=== PATIENT | female | born 1955 | race Caucasian/White ===

== ENCOUNTER 2024-06-17 21:28 | Emergency (ER) | payer OTHER, MEDICAID ==
[~2024-06-17] VITALS: Ht 162.6 cm; Wt 63.5 kg
[~2024-06-17 21:28] MED LIST: ALPR1TAB2 PO; BENA10TA74 PO; CALC-555 PO; CYCL-289 PO; GABA300C PO; HYDR-3326 PO; PRAV10TA40 PO; RANI150T8 PO; TRAM50TA2 PO
[2024-06-17] MEDS ORDERED: ONDANSETRON 4 MG/2 ML VIAL ONE (22:22)
[2024-06-17] MEDS ORDERED: HYDROMORPHONE 1 MG/1 ML DISP.SYRIN ONE (22:22)
[2024-06-17] MEDS: HYDROMORPHONE 1 MG/1 ML DISP.SYRIN IV ONE (22:37)
[2024-06-17] MEDS: ONDANSETRON 4 MG/2 ML VIAL IV ONE (22:37)
[2024-06-17 22:50] LABS: BASOPHILS % (AUTO) 0.6 % (0.0-2.0); EOSINOPHILS # (AUTO) 0.1 K/uL (0.0-0.7); EOSINOPHILS % (AUTO) 1.4 % (0.0-7.0); HEMATOCRIT 34.4 % (31.2-41.9); HEMOGLOBIN 11.8 g/dL (10.9-14.3); LYMPHOCYTES # (AUTO) 1.7 K/uL (0.8-4.8); LYMPHOCYTES % (AUTO) 22.3 % (20.5-51.5); MEAN CORPUSCULAR HEMOGLOBIN 31.6 uug (24.7-32.8); MEAN CORPUSCULAR HGB CONC 34 g/dL (32.3-35.6); MEAN CORPUSCULAR VOLUME 92.2 fL (75.5-95.3); MONOCYTES # (AUTO) 0.7 K/uL (0.1-1.30); MONOCYTES % (AUTO) 9.4 % (0.0-11.0); NEUTROPHILS # (AUTO) 5.1 K/uL (1.8-8.9); NEUTROPHILS % (AUTO) 66.3 % (38.5-71.5); PLATELET COUNT (AUTO) 125 K/uL (179-408); RED BLOOD CELL COUNT(AUTO) 3.73 MIL/uL (3.63-4.92); RED CELL DISTRIBUTION WIDTH 12.2 % (12.3-17.7); WHITE BLOOD COUNT (AUTO) 7.8 K/uL (3.8-11.8)
[2024-06-17 22:59] LABS: DIFFERENTIAL COMMENT 1
[2024-06-17 23:04] LABS: POTASSIUM 4.8 mmol/L (3.5-5.1)
[2024-06-17 23:10] LABS: ALBUMIN 3.9 g/dL (3.4-5.0); BILIRUBIN,DIRECT 0.1 mg/dL (0.0-0.2); BILIRUBIN,TOTAL 0.5 mg/dL (0.2-1.0); TOTAL PROTEIN, SERUM 6.6 g/dL (6.4-8.2)
[2024-06-17] MEDS ORDERED: HYDR-3980 PO (23:25)
[2024-06-17] MEDS ORDERED: ONDA4TAB11 PO (23:25)
[2024-06-17] MEDS ORDERED: METOCLOPRAMIDE HCL 10 MG/2 ML VIAL ONE (23:33)
[2024-06-17] MEDS ORDERED: diphenhydrAMINE 50 MG/1 ML VIAL ONE (23:33)
[2024-06-17] MEDS: diphenhydrAMINE 50 MG/1 ML VIAL IV ONE (23:40)
[2024-06-17] MEDS: METOCLOPRAMIDE HCL 10 MG/2 ML VIAL IV ONE (23:40)
[2024-06-17 23:59] VITALS: BP 130/65; TEMP 97.9; O2SAT 97
== END 2024-06-17 23:59 | disposition home or self-care (01) ==
LOC: ER 21:28
DX: M54.9 Dorsalgia, unspecified (principal); F32.A Depression, unspecified; I11.9 Hypertensive heart disease without heart failure; M19.90 Unspecified osteoarthritis, unspecified site; Z79.899 Other long term (current) drug therapy; Z88.6 Allergy status to analgesic agent
CPT/HCPCS: 99285; 72128; 96374; 96375; 80076; 80048; 85025; 85730; 36415; 72131; J1171; J1200; J2765; J2405; A4606; A4663

== ENCOUNTER 2024-07-14 09:16 | Emergency (ER) | payer OTHER, MEDICAID ==
[~2024-07-14] VITALS: Ht 157.5 cm; Wt 63.5 kg
[~2024-07-14 09:16] MED LIST changes: +HYDR-3980 PO; +ONDA4TAB11 PO
[2024-07-14] MEDS ORDERED: ONDANSETRON ODT 4 MG TAB.RAPDIS ONE (10:07)
[2024-07-14] MEDS ORDERED: KETOROLAC TROMETHAMINE 30 MG INJ ONE (10:07)
[2024-07-14] MEDS ORDERED: HYDROMORPHONE 1 MG/1 ML DISP.SYRIN ONE (10:07)
[2024-07-14] MEDS ORDERED: HYDROMORPHONE 2 MG/1 ML DISP.SYRIN ONE (10:08)
[2024-07-14] MEDS: HYDROMORPHONE 1 MG/1 ML DISP.SYRIN IM ONE (10:12)
[2024-07-14] MEDS: KETOROLAC TROMETHAMINE 30 MG INJ IM ONE (10:12)
[2024-07-14] MEDS: ONDANSETRON ODT 4 MG TAB.RAPDIS SL ONE (10:12)
[2024-07-14 10:25] LABS: BASOPHILS % (AUTO) 0.8 % (0.0-2.0); EOSINOPHILS # (AUTO) 0.2 K/uL (0.0-0.7); EOSINOPHILS % (AUTO) 3.7 % (0.0-7.0); HEMATOCRIT 38.3 % (31.2-41.9); HEMOGLOBIN 13.3 g/dL (10.9-14.3); LYMPHOCYTES # (AUTO) 1.7 K/uL (0.8-4.8); LYMPHOCYTES % (AUTO) 31.5 % (20.5-51.5); MEAN CORPUSCULAR HEMOGLOBIN 31.7 uug (24.7-32.8); MEAN CORPUSCULAR HGB CONC 35 g/dL (32.3-35.6); MEAN CORPUSCULAR VOLUME 91.4 fL (75.5-95.3); MONOCYTES # (AUTO) 0.6 K/uL (0.1-1.30); MONOCYTES % (AUTO) 11.4 % (0.0-11.0); NEUTROPHILS # (AUTO) 2.8 K/uL (1.8-8.9); NEUTROPHILS % (AUTO) 52.6 % (38.5-71.5); PLATELET COUNT (AUTO) 110 K/uL (179-408); RED BLOOD CELL COUNT(AUTO) 4.19 MIL/uL (3.63-4.92); RED CELL DISTRIBUTION WIDTH 12.8 % (12.3-17.7); WHITE BLOOD COUNT (AUTO) 5.4 K/uL (3.8-11.8)
[2024-07-14 10:33] LABS: DIFFERENTIAL COMMENT 1
[2024-07-14 10:35] LABS: CALCIUM 9.3 mg/dL (8.5-10.1); CREATININE 0.9 mg/dL (0.6-1.3); MAGNESIUM 2.3 mg/dL (1.8-2.4); POTASSIUM 4.6 mmol/L (3.5-5.1)
[2024-07-14] MEDS ORDERED: HYDR4TAB4 PO (11:51)
[2024-07-14 12:22] VITALS: BP 123/70; O2SAT 99
== END 2024-07-14 12:23 | disposition home or self-care (01) ==
LOC: ER 09:16
DX: G89.29 Other chronic pain (principal); M54.50 Low back pain, unspecified; F32.A Depression, unspecified; I11.9 Hypertensive heart disease without heart failure; M19.90 Unspecified osteoarthritis, unspecified site; Z79.899 Other long term (current) drug therapy; Z88.6 Allergy status to analgesic agent
CPT/HCPCS: 99284; 80048; 83735; 85025; 36415; 96372 ×2; J1885; J1171 ×2; A4606; A4663; Q0162